=== PATIENT | male | born 1945 | race Native Hawaiian/Other Pacific Islander ===

== ENCOUNTER 2021-12-30 18:01 | Emergency (ER) | payer OTHER ==
[~2021-12-30] VITALS: Ht 170.2 cm; Wt 65.8 kg
[2021-12-30 18:22] LABS: PLATELET COUNT 207 K/uL (142-355)
[2021-12-30 18:35] LABS: POTASSIUM 4.2 mmol/L (3.6-5.2)
[2021-12-30 19:30] VITALS: BP 148/66; TEMP 97.8
[2021-12-30] MEDS ORDERED: ASPIRIN/ENTERIC81 MG PO (23:06)
[2021-12-30] MEDS ORDERED: LORA0.5T17 PO (23:08)
[2021-12-30] MEDS ORDERED: LIPITOR40 MG PO (23:09)
[2021-12-30] MEDS ORDERED: LORA2INJ21 IM (23:09)
[2021-12-30] MEDS ORDERED: LAMOTRIGINE200 MG PO (23:10)
[2021-12-30] MEDS ORDERED: LAMOTRIGINE25 MG PO (23:11)
[2021-12-30] MEDS ORDERED: QUETIAPINE25 MG PO (23:12)
[2021-12-30] MEDS ORDERED: RISP0.5T2 PO (23:13)
[2021-12-30] MEDS ORDERED: RISP2TAB2 PO (23:13)
[2021-12-30] MEDS ORDERED: SERTRALINE HYDR50 MG PO (23:14)
[2021-12-30] MEDS ORDERED: SERTRALINE HYD100 MG PO (23:15)
[2021-12-30] MEDS ORDERED: EUTHYROX25 MCG PO (23:17)
[2021-12-30] MEDS ORDERED: TYLENOL325 MG PO (23:18)
== END 2021-12-30 19:30 | disposition still patient (30) ==
LOC: ED 18:01
PROVIDERS: Emergency Medicine
DX: F03.91 Unspecified dementia, unspecified severity, with behavioral disturbance (principal); Z11.52 Encounter for screening for COVID-19; Z04.6 Encounter for general psychiatric examination, requested by authority
CPT/HCPCS: 36415; 80053; 85027; 87635; 93005; 99283; U0003